=== PATIENT | female | born 2005 | race Caucasian/White ===

== ENCOUNTER 2024-10-08 08:47 | Emergency (ER) | payer OTHER, SELFPAY ==
[2024-10-08 08:49] VITALS: BP 129/84
--- NOTE | 2024-10-08 09:18 | ED.GENMED ---
History of Present Illness
General
Chief Complaint: Musculo-Skeletal Complaint
Source: patient
Exam Limitations: none
Time Seen by Provider: 10/08/24 09:15
History of Present Illness
History of Present Illness:
See MDM
Past History
Past History
ED Past Medical History: None
ED Past Surgical History: None
Social History
Tobacco: Non-smoker
Alcohol: None
Phy Exam
Physical Exam
Physical Exam:
See MDM
Course
Orders/Labs/Results
Orders:
Orders
10/08/24 08:51
CR Ankle - Left Min 3 Views Urgent
Comment:
Reason For Exam: pain/injury
10/08/24 09:18
Crutches-Treatment ONCE
Ibuprofen [Motrin] 600 mg PO NOW STA
Vital Signs
Initial and Last Documented VS:
Initial Vital Signs
Temp Pulse Resp BP Pulse Ox
98.4 F 82 16 129/84 100
10/08/24 08:49 10/08/24 08:49 10/08/24 08:49 10/08/24 08:49 10/08/24 08:49
Last Documented Vital Signs
Temp Pulse Resp BP Pulse Ox
98.4 F 82 16 129/84 100
10/08/24 08:49 10/08/24 08:49 10/08/24 08:49 10/08/24 08:49 10/08/24 08:49
MDM/Problems Addressed
Differential Diagnosis Includes:
HPI and MDM Narrative:
19-year old female presenting with left ankle pain. Patient states she missed stepped walking down the steps last night and twisted her ankle. Patient complains of pain on the front aspect of her ankle. On exam, the joint is stable. There is
mild tenderness over the talus but both medial and lateral malleolus are nontender. The distal extremity is neurovascularly intact. X-ray was performed. There is no obvious fracture. Discussed likely ligamentous strain and follow-up with
podiatry if symptoms persist. Patient given crutches for comfort and Motrin
Physical exam
General: Well appearing and non-toxic
HEENT: protecting airway
Neck: appears supple
CV: No evidence of cyanosis
Resp: No accessory muscle use
Abd: Non-distended
Extremities: No deformities. Mild tenderness to dorsum of proximal left foot. Distal foot neurovascularly intact. Joint stable. No skin changes
Neuro: alert
Psych: Normal affect
Skin: Intact
Problems Addressed including Acute and Chronic Conditions affecting care:
1. Ankle sprain
Acuity: acute
Prognosis: stable
Details: X-ray negative for fracture. Patient given crutches for comfort
Differential Diagnosis (but not limited to): Ankle sprain, ankle fracture
Testing considered: Foot x-ray
Drug therapy (if applicable): OTC meds, please see d/c instruction regarding Rx drugs
Amount and/or Complexity of Data Reviewed
Clinical info obtained from: Patient
External data reviewed: N/A
Labs I independently reviewed (but not limited to): N/A
Radiology: N/A
Pulse Ox: not hypoxic
EKG independently reviewed: N/A
E Learning Specialist: N/A
Critical Care: N/A
Risk of Complication:
Social Determinants of health: Good social support
Discussed with other providers: N/A
Escalation of Care includes Admit/Obs: After being observed in the Emergency Department, pt stable for discharge.
Occasional wrong word or 'sound a like' substitutions may have occurred due to the inherent limitations of voice recognition software. Read the chart carefully and recognize, using context, where substitutions have occurred.
*Critical Care Note
Total Time (30-74mins, 75-104mins- exclusive of procedures): Not Applicable
ED Attending Note
-
Portions of this chart may have been created with voice recognition software.� Occasional wrong word or��sound alike� substitutions may have occurred due to the inherent limitations of voice recognition software.
Discharge Plan
Departure
Patient Disposition: Home (Routine Discharge)
Date of Disposition: 10/08/24
Time of Disposition: 09:18
Patient with high blood pressure during this ER visit?: No
Discharge Problem:
Ankle sprain
Instructions: Ankle sprain - ED discharge instructions
Referrals:
Dominick Corley DPM [Active] -
Activity Restrictions/Additional Instructions:
Please use ice and Motrin for the next few days. Please follow-up with the foot doctor your symptoms persist. Please return for worsening symptoms.
Interventions
Interventions:
*Risk Screen - Suicide Last Done: 10/08/24 08:49
*General Assessment Last Done: 10/08/24 08:49
*Neglect/Abuse Screening Last Done: 10/08/24 08:49
*ED COVID-19 Vaccine History Last Done: 10/08/24 08:49
Discharge Date and Time
Print Language: MOHAWK
[2024-10-08] MEDS: MOTRIN 600 MG PO (09:34)
== END 2024-10-08 09:46 | disposition home or self-care (01) ==
LOC: EMR 08:47
PROVIDERS: EMERGENCY PHYSICIAN Student in an Organized Health Care Education/Training Program
DX: S93.402A Sprain of unspecified ligament of left ankle, initial encounter (principal); X50.1XXA Overexertion from prolonged static or awkward postures, initial encounter
CPT/HCPCS: 99283; 73610

== ENCOUNTER 2025-02-18 13:02 | Emergency (ER) | payer OTHER, SELFPAY ==
[2025-02-18 13:04] VITALS: BP 140/94
--- NOTE | 2025-02-18 13:28 | ED.GENMED ---
History of Present Illness
General
Chief Complaint: Urinary Symptoms
Source: patient
Exam Limitations: none
Time Seen by Provider: 02/18/25 13:17
Nursing documentation reviewed up to this point in time: agreed with
History of Present Illness
History of Present Illness:
Patient is a 19-year-old female presents to the ER for evaluation. patient reports for the past several days she has had urinary frequency burning and urinating only small amounts at a time. 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
to the [facility]. She was tested and told she had a UTI was placed on Macrobid yesterday. She took 2 doses yesterday and 1 dose today. Today however she complains of increasing low back pain and nausea. She continues to have UTI symptoms.
She denies any fever or chills.
She is sexually active denies any vaginal discharge. She has no prior history of STD. Her last menstrual was January 30
Past History
Past History
ED Past Medical History: None
ED Past Surgical History: None
Social History
Tobacco: Non-smoker
Alcohol: None
Phy Exam
General Physical Exam
General Presentation: no apparent distress
General age: appears stated age
General Skin: warm and dry
General Habitus: normal
General Mental: alert
General Hydration: appears well hydrated
Gastrointestinal Exam
Gastrointestinal Exam: non tender and soft
Neurological Exam
Neurological Exam: alert and oriented x3
Musculoskeletal Exam
Musculoskeletal Exam: full ROM
Skin Exam
Skin Exam: normal color and warm/dry
Psychiatric Exam
Psychiatric Exam: normal mood/affect
Course
Orders/Labs/Results
Orders:
Orders
02/18/25 13:18
IV Insert/Care/Rem.- Treatment PRN
0.9% Sodium Chloride 1000 ml [Nss] 1,000 ml IV BOLUS
Ondansetron Injectable [Zofran] 4 mg IV NOW STA
02/18/25 13:30
Complete Blood Count/With Diff Urgent
Comprehensive Metabolic Panel Urgent
HCG, Serum Qualitative Screen Urgent
Urinalysis Reflex To Culture Urgent
Date Specimen was Collected: 02/18/25
Time Specimen was Collected: 13:29
Urine Microscopic Reflex Cult Urgent
Urine Culture Urgent
[place]ES Source: U
Specimen Description:
Date Specimen was Collected: 02/18/25
Time Specimen was Collected: 13:29
02/18/25 13:33
Test Result ONCE
02/18/25 14:09
Chlamydia/GC by PCR Urgent
[place] Source: Urine
Specimen Description:
Source:: URINE
Date Specimen was Collected: 02/18/25
Time Specimen was Collected: 14:00
02/18/25 15:26
Cefdinir [Omnicef] 300 mg PO NOW STA
Abnormal Lab Results
02/18/25
13:30
Glucose 115 H mg/dl
(70-99)
Urine Ketones 1+ A
(Negative)
Urine Nitrite (Reflex) Positive A
(Negative)
Urine Bilirubin 3+ A
(Negative)
Urine Urobilinogen 4+ A
(Neg - 1+)
Leukocyte Esterase Rfl 2+ A
(Negative)
Urine WBC (Reflex) 11-15 A /HPF
(0-5)
Urine Bacteria (Reflex) Few A
(Negative)
Urine Albumin (Reflex) 1+ A
(Neg - Trace)
02/18/25 13:30
02/18/25 13:30
Vital Signs
Initial and Last Documented VS:
Initial Vital Signs
Temp Pulse Resp BP Pulse Ox
98.3 F 79 18 140/94 100
02/18/25 13:04 02/18/25 13:04 02/18/25 13:04 02/18/25 13:04 02/18/25 13:04
Last Documented Vital Signs
Temp Pulse Resp BP Pulse Ox
98.3 F 75 18 127/87 99
02/18/25 13:04 02/18/25 15:43 02/18/25 15:43 02/18/25 15:43 02/18/25 15:43
MDM/Problems Addressed
Differential Diagnosis Includes:
Not limited to UTI, pyelonephritis
MDM/Problems Addressed:
Patient with UTI symptoms despite Macrobid taken several doses presents with worsening symptoms persistent dysuria, nausea and now with low back pain. She denies any fevers and is afebrile with a normal white count. She denies any vaginal
discharge however is sexually active no condoms will check gonorrhea chlamydia however urine does appear infected.
Case reviewed ED physician will stop Macrobid and start cefdinir discussed close outpatient follow-up
*Pulse Oximetry
SaO2: 100
Oxygen Mode of Delivery: Room air
Patient hypoxic: no
*Critical Care Note
Total Time (30-74mins, 75-104mins- exclusive of procedures): Not Applicable
ED Attending Note
-
Portions of this chart may have been created with voice recognition software.� Occasional wrong word or��sound alike� substitutions may have occurred due to the inherent limitations of voice recognition software.
Discharge Plan
Departure
Patient Disposition: Home (Routine Discharge)
Date of Disposition: 02/18/25
Time of Disposition: 15:27
Patient with high blood pressure during this ER visit?: Yes
Condition: Fair
Covid-19: Not Applicable
Discharge Problem:
UTI (urinary tract infection)
Instructions: Urinary Tract Infection, Adult (DC), BLOOD PRESSURE
Prescriptions:
New
cefdinir 300 mg capsule
300 mg PO BID Qty: 14 0RF
Referrals:
[facility] [Outside]
UNKNOWN - PT DOES,NOT KNOW [Family Provider]
Activity Restrictions/Additional Instructions:
As discussed stop Macrobid start cefdinir: 1 capsule twice a day for the next 7 days. This medication were sent to pharmacy. Increase fluids. Follow-up closely with [facility]/family practice residency clinic in the next 2 days return if any
worsening of symptoms include increasing pain fever chills vomiting or any further concerns.
Interventions
Interventions:
ED-Female Genitourinary Assessment Last Done: 02/18/25 13:44
Discharge Date and Time
Print Language: [place]IZ[place]
[2025-02-18] MEDS: NSS 1000 IV (13:37)
[2025-02-18] MEDS: ZOFRAN 4 MG IV (13:39)
[2025-02-18 13:50] LABS: Hematocrit 37.3 % (37.0-47.0); Hemoglobin 12.6 g/dL (12.0-16.0); Mean Corp Hgb Conc. 33.8 g/dL (33.0-37.0); Mean Corpuscular Volume 84.2 fL (81.0-99.0); Nucleated Red Blood Cells % 0 %; Platelet Count 261 10^3/uL (130-400); Red Cell Dist. Width 12.0 % (11.5-14.5)
[2025-02-18 14:19] LABS: HCG, Serum Qualitative Screen Negative
[2025-02-18 14:25] LABS: ALT (SGPT) 17 U/L (0-35); AST (SGOT) 18 U/L (14-36); Albumin 4.7 g/dl (3.5-5.0); Alkaline Phosphatase 71 U/L (38-126); Blood Urea Nitrogen 12 mg/dl (7-17); Calcium 9.8 mg/dl (8.4-10.2); Carbon Dioxide 26 mmol/L (22-30); Chloride 105 mmol/L (98-107); Glucose 115 mg/dl (70-99); Potassium 4.0 mmol/L (3.5-5.1); Sodium 137 mmol/L (135-145); Total Protein 7.7 g/dl (6.3-8.2); eGFR > 60.00
[2025-02-18 14:32] LABS: Urine Character Clear (Clear)
[2025-02-18 14:47] LABS: Urine Red Blood Cell 0-2 /HPF (0-2); Urine Squamous Cell >30 /LPF (Few)
[2025-02-18] MEDS: OMNICEF 300 MG PO (15:36)
[2025-02-18 15:43] VITALS: BP 127/87
== END 2025-02-18 15:45 | disposition home or self-care (01) ==
LOC: EMR 13:02
PROVIDERS: Nurse Practitioner; EMERGENCY PHYSICIAN Emergency Medicine
DX: N39.0 Urinary tract infection, site not specified (principal); M54.50 Low back pain, unspecified; R11.0 Nausea
CPT/HCPCS: 80053; 81003; 81015; 84703; 85025; 87086; 87491; 87591; 96361; 96374; 99284